=== PATIENT | female | born 1995 | race American Indian/Alaskan Native ===

== ENCOUNTER 2021-04-10 06:27 | Day surgery (SDC) | payer OTHER ==
[~2021-04-10 06:27] MED LIST: PRENATAL TABLE1 EAC1
[2021-04-10] MEDS ORDERED: DOXYCYCLINE HY100 M2 PO (13:09)
[2021-04-10] MEDS ORDERED: IBU600 MG PO (13:10)
== END 2021-04-10 17:15 | disposition home or self-care (01) ==
LOC: CIR.AMB 06:27
PROVIDERS: ATTEND Obstetrics & Gynecology
DX: D25.0 Submucous leiomyoma of uterus (principal); N84.0 Polyp of corpus uteri; Z20.822 Contact with and (suspected) exposure to COVID-19